=== PATIENT | male | born 1955 | race Two or more races ===

== ENCOUNTER 2017-07-20 08:57 | Outpatient (CLI) | payer MEDICARE, MEDICAID | END 2017-07-20 23:59 | LOC: WOU 08:57 | PROVIDERS: ATTEND Podiatrist Foot & Ankle Surgery | DX: T87.53 Necrosis of amputation stump, right lower extremity (principal); E11.52 Type 2 diabetes mellitus with diabetic peripheral angiopathy with gangrene; E11.621 Type 2 diabetes mellitus with foot ulcer; I96 Gangrene, not elsewhere classified; L97.413 Non-pressure chronic ulcer of right heel and midfoot with necrosis of muscle; L97.423 Non-pressure chronic ulcer of left heel and midfoot with necrosis of muscle; L97.516 Non-pressure chronic ulcer of other part of right foot with bone involvement without evidence of necrosis; L97.312 Non-pressure chronic ulcer of right ankle with fat layer exposed; E11.622 Type 2 diabetes mellitus with other skin ulcer; Z89.431 Acquired absence of right foot; E11.22 Type 2 diabetes mellitus with diabetic chronic kidney disease; I13.2 Hypertensive heart and chronic kidney disease with heart failure and with stage 5 chronic kidney disease, or end stage renal disease; I50.9 Heart failure, unspecified; N18.6 End stage renal disease; Z99.2 Dependence on renal dialysis; Z79.4 Long term (current) use of insulin; Z79.01 Long term (current) use of anticoagulants; D63.1 Anemia in chronic kidney disease; E11.42 Type 2 diabetes mellitus with diabetic polyneuropathy; Z95.2 Presence of prosthetic heart valve | CPT/HCPCS: A6253; A6402 ×2; G0463 ==

== ENCOUNTER 2017-09-21 10:00 | Outpatient (CLI) | payer MEDICARE, MEDICAID | END 2017-09-21 23:59 | disposition home or self-care (01) | LOC: WOU 10:00 | PROVIDERS: ATTEND Podiatrist Foot & Ankle Surgery | DX: E11.621 Type 2 diabetes mellitus with foot ulcer (principal); L97.425 Non-pressure chronic ulcer of left heel and midfoot with muscle involvement without evidence of necrosis; L97.316 Non-pressure chronic ulcer of right ankle with bone involvement without evidence of necrosis; L97.515 Non-pressure chronic ulcer of other part of right foot with muscle involvement without evidence of necrosis; E11.22 Type 2 diabetes mellitus with diabetic chronic kidney disease; I13.11 Hypertensive heart and chronic kidney disease without heart failure, with stage 5 chronic kidney disease, or end stage renal disease; N18.6 End stage renal disease; Z99.2 Dependence on renal dialysis; E11.69 Type 2 diabetes mellitus with other specified complication; M86.8X7 Other osteomyelitis, ankle and foot; Z79.4 Long term (current) use of insulin; E11.51 Type 2 diabetes mellitus with diabetic peripheral angiopathy without gangrene; Z83.3 Family history of diabetes mellitus | CPT/HCPCS: A6253; A6402 ×2; G0463 ==

== ENCOUNTER 2017-10-19 14:59 | Outpatient (CLI) | payer MEDICARE, MEDICAID | END 2017-10-19 23:59 | LOC: WOU 14:59 | PROVIDERS: ATTEND Podiatrist Foot & Ankle Surgery | DX: E11.52 Type 2 diabetes mellitus with diabetic peripheral angiopathy with gangrene (principal); I96 Gangrene, not elsewhere classified; E11.621 Type 2 diabetes mellitus with foot ulcer; L97.515 Non-pressure chronic ulcer of other part of right foot with muscle involvement without evidence of necrosis; L97.316 Non-pressure chronic ulcer of right ankle with bone involvement without evidence of necrosis; L97.425 Non-pressure chronic ulcer of left heel and midfoot with muscle involvement without evidence of necrosis; E11.22 Type 2 diabetes mellitus with diabetic chronic kidney disease; N18.6 End stage renal disease; Z99.2 Dependence on renal dialysis; Z99.3 Dependence on wheelchair; Z79.891 Long term (current) use of opiate analgesic | CPT/HCPCS: 11043; A6253; A6402 ==

== ENCOUNTER 2017-10-26 13:20 | Outpatient (CLI) | payer MEDICARE, MEDICAID | END 2017-10-26 23:59 | LOC: WOU 13:20 | PROVIDERS: ATTEND Podiatrist Foot & Ankle Surgery | DX: E11.52 Type 2 diabetes mellitus with diabetic peripheral angiopathy with gangrene (principal); I96 Gangrene, not elsewhere classified; L97.516 Non-pressure chronic ulcer of other part of right foot with bone involvement without evidence of necrosis; L97.316 Non-pressure chronic ulcer of right ankle with bone involvement without evidence of necrosis; L97.422 Non-pressure chronic ulcer of left heel and midfoot with fat layer exposed; E11.22 Type 2 diabetes mellitus with diabetic chronic kidney disease; E11.69 Type 2 diabetes mellitus with other specified complication; M86.8X7 Other osteomyelitis, ankle and foot; E11.42 Type 2 diabetes mellitus with diabetic polyneuropathy; N18.6 End stage renal disease; Z99.2 Dependence on renal dialysis; Z99.3 Dependence on wheelchair; B35.1 Tinea unguium | CPT/HCPCS: 11042; 11044; 11047; A6197; A6253; A6402; J3490 ==

== ENCOUNTER 2017-11-09 13:10 | Outpatient (CLI) | payer MEDICARE, MEDICAID | END 2017-11-09 23:59 | disposition home health service (06) | LOC: WOU 13:10 | PROVIDERS: ATTEND Podiatrist Foot & Ankle Surgery | DX: E11.621 Type 2 diabetes mellitus with foot ulcer (principal); L97.422 Non-pressure chronic ulcer of left heel and midfoot with fat layer exposed; L97.316 Non-pressure chronic ulcer of right ankle with bone involvement without evidence of necrosis; E11.622 Type 2 diabetes mellitus with other skin ulcer; T87.9 Unspecified complications of amputation stump; E11.52 Type 2 diabetes mellitus with diabetic peripheral angiopathy with gangrene; L03.115 Cellulitis of right lower limb; E11.22 Type 2 diabetes mellitus with diabetic chronic kidney disease; N18.6 End stage renal disease; Z99.2 Dependence on renal dialysis; Z79.82 Long term (current) use of aspirin | CPT/HCPCS: 11044; 11047; A6197 ×2; A6209; A6253; A6402 ×3; J3490 ==

== ENCOUNTER 2017-11-23 14:19 | Outpatient (CLI) | payer MEDICARE, MEDICAID | END 2017-11-23 23:59 | LOC: WOU 14:19 | PROVIDERS: ATTEND Podiatrist Foot & Ankle Surgery | DX: T87.89 Other complications of amputation stump (principal); E11.621 Type 2 diabetes mellitus with foot ulcer; L97.422 Non-pressure chronic ulcer of left heel and midfoot with fat layer exposed; L97.316 Non-pressure chronic ulcer of right ankle with bone involvement without evidence of necrosis; L97.516 Non-pressure chronic ulcer of other part of right foot with bone involvement without evidence of necrosis; E11.622 Type 2 diabetes mellitus with other skin ulcer; E11.69 Type 2 diabetes mellitus with other specified complication; M86.8X7 Other osteomyelitis, ankle and foot; Z79.82 Long term (current) use of aspirin; E11.22 Type 2 diabetes mellitus with diabetic chronic kidney disease; N18.6 End stage renal disease; Z99.2 Dependence on renal dialysis; L03.90 Cellulitis, unspecified; R60.0 Localized edema | CPT/HCPCS: 11043; 11046; 87070; 87077; 87186; A6197 ×2; A6253; A6402 ×2; A6407; J3490 ==

== ENCOUNTER 2017-11-30 12:05 | Outpatient (CLI) | payer MEDICARE, MEDICAID | END 2017-11-30 23:59 | LOC: WOU 12:05 | PROVIDERS: ATTEND Podiatrist Foot & Ankle Surgery | DX: E11.621 Type 2 diabetes mellitus with foot ulcer (principal); L97.422 Non-pressure chronic ulcer of left heel and midfoot with fat layer exposed; L97.316 Non-pressure chronic ulcer of right ankle with bone involvement without evidence of necrosis; E11.622 Type 2 diabetes mellitus with other skin ulcer; Z79.82 Long term (current) use of aspirin; E11.22 Type 2 diabetes mellitus with diabetic chronic kidney disease; N18.6 End stage renal disease; Z99.2 Dependence on renal dialysis; E11.40 Type 2 diabetes mellitus with diabetic neuropathy, unspecified; L03.115 Cellulitis of right lower limb; Z89.431 Acquired absence of right foot | CPT/HCPCS: 11043; 11046; A6197; A6209; A6253; A6402 ×2 ==

== ENCOUNTER 2018-02-11 19:46 | Inpatient (IN) | payer MEDICARE, MEDICAID ==
[~2018-02-11] VITALS: Ht 162.6 cm; Wt 77.6 kg
--- NOTE | 2018-02-11 20:00 | NUR ---
TO BED 12 [facility] C/O MISSED DIALYSIS TODAY. PT AAOX4 NO ACUTE DISTRESS NOTED, RESP EVEN AND UNLABORED. PLACE PT ON CARDIAC MONITORING, CONTINUOUS POX. ER MD AT BEDSIDE TO EVAL PT WITH ORDERS RECEIVED. WILL CARRY OUT ORDERS.
--- NOTE | 2018-02-11 20:13 | NUR ---
MELTER SUPERVISOR OPEN HEARTH FURNACE AT BEDSIDE FOR BLOOD DRAW.
[2018-02-11 20:30] LABS: BASOPHILS % (AUTO) 0.7 % (0.0-2.0); EOSINOPHILS % (AUTO) 3.4 % (0.0-6.0); HEMATOCRIT 28 % (39-51); LYMPHOCYTES # (AUTO) 0.5 /CMM (0.8-4.8); LYMPHOCYTES % (AUTO) 9.9 % (20.0-44.0); MEAN CORPUSCULAR HEMOGLOBIN 31 PG (26.0-33.0); MEAN CORPUSCULAR HGB CONC 32 g/dl (31.0-36.0); MEAN CORPUSCULAR VOLUME 95 fL (80-96); MONOCYTES # (AUTO) 0.3 /CMM (0.1-1.30); MONOCYTES % (AUTO) 6.3 % (2.0-12.0); NEUTROPHILS # (AUTO) 3.7 /CMM (1.8-8.9); NEUTROPHILS % (AUTO) 79.7 % (43.0-81.0); PLATELET COUNT (AUTO) 137 /CMM (150-450); RDW COEFFICIENT OF VARIATION 15.2 (11.5-15.0); RED BLOOD CELL COUNT(AUTO) 2.93 MIL/uL (4.5-6.0); WHITE BLOOD COUNT (AUTO) 4.7 K/uL (4.3-11.0)
[2018-02-11 20:58] LABS: CALCIUM, SERUM 9.6 mg/dL (8.5-10.1); CREATININE 6.4 mg/dL (0.6-1.3); POTASSIUM 5.1 mmol/L (3.5-5.1)
--- NOTE | 2018-02-11 21:49 | NUR ---
REPORT CALLED TO DOPERTUCKER TIDWELL. WILL TRANSPORT PT VIA ACLS PROTOCOL.
--- NOTE | 2018-02-11 22:06 | NUR ---
PAGED [facility] FOR PANEL - ON ALL DR WU
--- NOTE | 2018-02-11 22:09 | NUR ---
ER TALKING TO DR. WU REGARDING PT ADMISSION. WILL TRANSPORT PT VIA ACLS PROTOCOL.
[2018-02-11] MEDS ORDERED: MAG HYDROX/AL HYDROX/SIMETH 30 ML UDC PO PRN (22:30)
[2018-02-11] MEDS ORDERED: ACETAMINOPHEN 325 MG TABLET PO PRN (22:30)
[2018-02-11] MEDS ORDERED: Z GUARD REMEDY 2 OZ OINT TP PRN (22:30)
[2018-02-11] MEDS ORDERED: ONDANSETRON HCL/PF 4 MG/2 ML VIAL IVP PRN (22:30)
[2018-02-11] MEDS ORDERED: ZOLPIDEM TARTRATE 5 MG TABLET PO PRN (22:30)
[2018-02-11] MEDS ORDERED: MAGNESIUM HYDROXIDE 30 ML UDC PO PRN (22:30)
[2018-02-11 22:51] VITALS: BP 148/59
[2018-02-11] MEDS ORDERED: LEVO137T24 PO (23:54)
[2018-02-11] MEDS ORDERED: OMEG1CAP55 PO (23:54)
[2018-02-11] MEDS ORDERED: WARF2TAB57 PO (23:54)
[2018-02-11] MEDS ORDERED: DOCU-141 PO (23:54)
[2018-02-11] MEDS ORDERED: PANT40TA2 PO (23:54)
[2018-02-11] MEDS ORDERED: CALC-811 PO (23:54)
[2018-02-11] MEDS ORDERED: ACAR50TA3 PO (23:54)
[2018-02-11] MEDS ORDERED: ISOS20TA8 PO (23:54)
[2018-02-11] MEDS ORDERED: FOLI1TAB16 PO (23:54)
[2018-02-11] MEDS ORDERED: WARF1TAB47 PO (23:54)
[2018-02-11] MEDS ORDERED: SENN-18 PO (23:54)
[2018-02-11] MEDS ORDERED: VIT1TABL46 PO (23:54)
[2018-02-11] MEDS ORDERED: CARV12.5 PO (23:54)
[2018-02-11] MEDS ORDERED: VANC1PLA10 IV (23:54)
[2018-02-11] MEDS ORDERED: MERO500V3 IV (23:54)
[2018-02-11] MEDS ORDERED: ATOR10TA PO (23:54)
[2018-02-11] MEDS ORDERED: EPOE1VIA7 SQ (23:54)
[2018-02-11] MEDS ORDERED: LISI10TA5 PO (23:54)
[2018-02-11] MEDS ORDERED: SEVE800T8 PO (23:54)
[2018-02-11] MEDS ORDERED: CINA30TA2 PO (23:54)
[2018-02-12] VITALS (7 sets, daily range): BP systolic 111–140; BP diastolic 44–82
[2018-02-12] MEDS ORDERED: CLONIDINE HCL 0.1 MG TABLET PO PRN
--- NOTE | 2018-02-12 | NUR ---
ACETYLENE TORCH SOLDERER NOTES RECEIVE PT FROM Lilian AT 02/11/18 7175 PT ADMITTED TO TELE UNIT PT A/O X4, SMITH PICC LINE INTACT AND PATENT HEAD TO TOE ASSESSMENT IS DONE, RESPIRATIONS EVEN AND UNLABORED. STABLE, PT REFUSED REMOVED DRESSING TO HIS L FOOT LEFT UPPER LEG AND R FOOT PATIENT VERBALIZED THAT DR. SIERRA INSTRUCTED HIM THAT ONLY DOCTOR WILL CHANGE DRESSING PER PT DRESSING WAS CHANGED 2 DAYS AGO DRESSING CLEAN AND NO S/S OF BLEEDING NOT SOAKED. PT KEPT CLEAN AND DRY AND COMFORT. NEEDS ATTENDED. WILL MONITOR PT. VS STABLE
--- NOTE | 2018-02-12 03:58 | NUR ---
TYE AND SPOKE TO DR. WU REMINDED MED RECON OF THE PATIENT TO LOOK AT.
--- NOTE | 2018-02-12 06:19 | NUR ---
WASH PLANT OPERATOR CLOSING NOTES PT COMFORTABLY ASLEEP AND EASILY AWAKEN, STABLE, SR 75 TOLERATING ROOM AIR 99% NOT IN DISTRESS. RESPIRATION EVEN AND UNLABORED. KEPT CLEAN AND DRY AND COMFORTABLE, ALL NURSING CARE RENDERED. NEEDS ATTENDED AND ANTICIPATED, NO FACIAL GRIMACING NOTED. NO COMPLAIN OF PAIN. GOOD SKIN CARE PROVIDED. ON LOW BED AT ALL TIMES TO ENSURE SAFETY. SAFE HAZARD FREE ENVIRONMENT PROVIDED. CALL LIGHT WITHIN EASY TO REACH. WILL ENDORSE NEXT SHIFT CONTINUITY OF CARE.
[2018-02-12 06:41] LABS: BASOPHILS % (AUTO) 0.4 % (0.0-2.0); EOSINOPHILS % (AUTO) 3.6 % (0.0-6.0); HEMATOCRIT 29 % (39-51); HEMOGLOBIN 9.4 g/dL (13.5-17.5); LYMPHOCYTES # (AUTO) 0.6 /CMM (0.8-4.8); LYMPHOCYTES % (AUTO) 14.3 % (20.0-44.0); MEAN CORPUSCULAR HEMOGLOBIN 33 PG (26.0-33.0); MEAN CORPUSCULAR HGB CONC 33 g/dl (31.0-36.0); MEAN CORPUSCULAR VOLUME 98 fL (80-96); MONOCYTES # (AUTO) 0.3 /CMM (0.1-1.30); MONOCYTES % (AUTO) 8.1 % (2.0-12.0); NEUTROPHILS # (AUTO) 3.1 /CMM (1.8-8.9); NEUTROPHILS % (AUTO) 73.6 % (43.0-81.0); PLATELET COUNT (AUTO) 112 /CMM (150-450); RDW COEFFICIENT OF VARIATION 15.8 (11.5-15.0); WHITE BLOOD COUNT (AUTO) 4.2 K/uL (4.3-11.0)
[2018-02-12 06:50] LABS: CALCIUM, SERUM 9.5 mg/dL (8.5-10.1); CREATININE 6.7 mg/dL (0.6-1.3); MAGNESIUM 2.3 mg/dL (1.8-2.4); PHOSPHORUS 3.5 mg/dL (2.5-4.9)
--- NOTE | 2018-02-12 06:59 | NUR ---
TELE NOTES GAVE 8 OZ APPLE JUICE WITH 2 PACKS OF WHITE SUGAR ENDORSE TO NEXT SHIFT RN TO RECHECK BLOOD SUGAR IN 30 MINUTES Addendum: 02/12/18 at 0716 by YAW MART RN PT DRINK ALL 80Z
--- NOTE | 2018-02-12 07:20 | NUR ---
TELE/RN OPENING NOTE PATIENT IS RECEIVED IN BED AWAKE. ALERT AND ORIENTED X4. DENIES SOB. RESPIRATION REGULAR AND UNLABORED. DENIES PAIN. PATIENT IS ON TELE MONITOR AT SR 72 WITH BBB. PATIENT IN NO APPARENT DISTRESS. SMITH PICC LINE PATENT AND SALINE LOCKED. PATIENT IS NOTED WITH RIGHT AND LEFT FOOT WOUND DRESSING WITH NO STRIKE THRUE. BED LOW AND LOCKED. SIDE RAILS UP X3. CALL LIGHT WITHIN REACH. WILL CONTINUE TO MONITOR.
[2018-02-12] MEDS ORDERED: POLY17PO4 PO (07:52)
[2018-02-12] MEDS ORDERED: CALC-7 PO (07:52)
[2018-02-12] MEDS ORDERED: SIME80TA15 PO (07:52)
[2018-02-12] MEDS ORDERED: ACET-868 PO (07:52)
[2018-02-12] MEDS ORDERED: HYDR-552 PO (07:52)
[2018-02-12] MEDS ORDERED: CALC-494 PO (07:52)
[2018-02-12] MEDS ORDERED: BISA10SU8 RC (07:52)
--- NOTE | 2018-02-12 08:15 | NUR ---
TELE/RN NOTE AT 0759 BLOOD AXWEU=[id number].
[2018-02-12] MEDS ORDERED: SIMETHICONE 80 MG TAB.CHEW PO PRN (09:00)
[2018-02-12] MEDS: CARVEDILOL 12.5 MG TABLET PO SCH ×2 (09:00→16:11)
[2018-02-12] MEDS ORDERED: Medication Not On Formulary EA (Omega-3 Acid Ethyl Esters (Lovaza) 1 GM) PO SCH (09:00)
[2018-02-12] MEDS ORDERED: CALCIUM CARB 250MG /VITAMIN D 1 UDTAB PO PRN (09:00)
[2018-02-12] MEDS ORDERED: HYDROCODONE/APAP 5/325MG 1 EACH TABLET PO PRN (09:00)
[2018-02-12] MEDS: LISINOPRIL (10MG) 10 MG TABLET PO SCH ×2 (09:00→16:11)
[2018-02-12] MEDS: ISOSORBIDE DINITRATE (20MG) 20 MG TABLET PO SCH ×3 (09:00→16:10)
[2018-02-12] MEDS ORDERED: SENNOSIDES 8.6 MG TABLET PO PRN (09:00)
[2018-02-12] MEDS ORDERED: BISACODYL SUPP (10 MG) 10 MG/SUPP.RECT SUPP.RECT RC PRN (09:00)
[2018-02-12] MEDS ORDERED: MEROPENEM 500 MG VIAL IV SCH (09:00)
[2018-02-12 09:14] LABS: INR 1.69 (0.87-1.13)
[2018-02-12] MEDS: FOLIC ACID 1 MG TABLET PO SCH (09:23)
[2018-02-12] MEDS: CALCIUM CARB 250MG /VITAMIN D 1 UDTAB PO SCH (09:23)
[2018-02-12] MEDS: PANTOPRAZOLE 40 MG TABLET.DR PO SCH (09:25)
[2018-02-12] MEDS ORDERED: FEE PK DOSING 1 MIN EA MC ONE (09:58)
[2018-02-12] MEDS ORDERED: VANCOMYCIN 500 MG in IV D5W 100 ML IV PRN (10:00)
[2018-02-12] MEDS: HYDROCODONE/APAP 5/325MG 1 EACH TABLET PO PRN ×3 (11:03→21:52)
[2018-02-12] MEDS ORDERED: LEVOFLOXACIN 750 MG /D5W 150ML 150 ML IV ONE (11:21)
[2018-02-12] MEDS ORDERED: HEPARIN SODIUM, PORCINE 5000 UNITS/1 ML VIAL IV ONE (11:30)
[2018-02-12] MEDS: HEPARIN INFUSION/D5W 500 ML IV PRN (12:01)
[2018-02-12] MEDS: SEVELAMER CARBONATE 800 MG TABLET PO SCH ×2 (13:00→17:21)
--- NOTE | 2018-02-12 14:07 | NUR ---
MS/RN NOTE ISORDIL AND RENAGEL DUE AT 1300 NOT ADMINISTERED DUE TO PATIENT GETTING DIALYZED.
[2018-02-12] MEDS ORDERED: EPOETIN ALFA (10,000 UNIT) 10,000 UNIT/ML VIAL SQ SCH (15:00)
[2018-02-12] MEDS: MEROPENEM 500 MG in IV NS 0.9% 50 ML IV SCH (15:13)
--- NOTE | 2018-02-12 15:13 | NUR ---
MS/RN NOTE MERREM DUE AT 1200 IS ADMINISTERED LATE DUE TO PATIENT GETTING DIALYSIS.
[2018-02-12] MEDS ORDERED: EPOETIN ALFA (10,000 UNIT) 10,000 UNIT/ML VIAL SQ PRN (15:15)
--- NOTE | 2018-02-12 15:47 | NUR ---
MS/RN NOTE DR MTZ IS MADE AWARE THAT THE PATIENT HEPARIN BOLUS WAS GIVEN ORDER AND THE HEPARIN DRIP WAS STARTED ORDERED BUT THE HEPATIN DRIP WAS STOPPED AT 1230 DUE TO PATIENT STARTED TO GET DIALYSIS. THE PATIENT IS SCHEDULED FOR PTT AT 1801. PER DR MTZ OK TO POSTPONE BLOOD DRAW FOR PTT AT 2145. (PATIENT GETTING DIALYSIS FROM 12:30 TO 1510 AND IV ATB FROM 1513 TO 1615).
[2018-02-12] MEDS ORDERED: WARFARIN SODIUM 1 MG TABLET PO SCH (17:00)
--- NOTE | 2018-02-12 18:30 | NUR ---
MS/RN CLOSING NOTE PATIENT ALERT AND ORIENTED X4. DENIES SOB. DENIES PAIN. RESPIRATION REGULAR AND UNLABORED. PATIENT IN NO APPARENT DISTRESS. RIGHT UPPER ARM PICC LINE PATENT AND IV HEPARIN INFUSING WITH NO S/S INFECTION. NO S/S BLEEDING NOTED. PATIENT IN STABLE CONDITION. BED LOW AND LOCKED. SIDE RAILS UP X3. CALL LIGHT WITHIN REACH. WILL ENDORSE TO SCAFFOLD ERECTOR.
--- NOTE | 2018-02-12 20:00 | NUR ---
MS RN NOTES RECEIVED RESTING COMFORTABLY ON BED,BREATHING NORMAL,WITH RIGHT UPPER ARM PICC LINE FOR IV MEDS.HEPARIN DRIP IN PROGRESS.WITH LEFT UPPER AV SHUNT FOR HD ACCESS.RIGHT FOOT DRESSING INTACT AND DRY.LEFT FOOT DRESSING INTACT AND DRY,REFUSED TO BE ELEVATED.DENIES DISCOMFORTS AT THE MOMENT.CALL LIGHT IN REACH,NEEDS ANTICIPATED.
[2018-02-12] MEDS: DOCUSATE SODIUM 100 MG CAPSULE PO SCH (21:42)
[2018-02-12] MEDS: ATORVASTATIN 10 MG TABLET PO SCH (21:42)
[2018-02-12] MEDS: CINACALCET HCL 30 MG TABLET PO SCH (21:42)
--- NOTE | 2018-02-12 21:52 | NUR ---
MS RN NOTES PAIN MANAGEMENT C/O PAIN VIA LEFT FOOT 01/11 ON PAIN SCALE,NORCO 5/325MG,1TAB PO GIVEN ORDERED FOR MODERATE PAIN
--- NOTE | 2018-02-12 22:40 | NUR ---
MS RN NOTES REPORTED BY [employer],APTT DRAWN AT 2145 WAS 81.HEPARIN DRIP DECREASED TO 1300UNITS FORM 1450 UNITS INITIAL DOSE.CHARGE NURSE VINICIUS MADE AWARE.
--- NOTE | 2018-02-12 23:00 | NUR ---
MS RN NOTES PATIENT REQUEST BLOOD SUGAR CHECK AND IT WAS 72,APPLE JUICE GIVEN PER PATIENT REQUEST.
--- NOTE | 2018-02-12 23:15 | NUR ---
MS RN NOTES STILL COMPLAINING OF PAIN, AND ITS NOW 8-9/10 ON PAIN SCALE.WILL PAGE MD REVIT DRAFTER FOR STRONGER PAIN MANAGEMENT.
--- NOTE | 2018-02-12 23:30 | NUR ---
MS RN NOTES DR WU CAME,MADE AWARE OF PATIENT CONCERN ABOUT PAIN,WITH ORDER FOR NORCO 10/325MG,1TAB PO Q 6 HOURS FOR SEVERE NOTED AND CARRIED OUT.
[2018-02-12] MEDS: HYDROCODONE/APAP 10/325MG 1 EA TABLET PO PRN (23:46)
[2018-02-13] VITALS (7 sets, daily range): BP systolic 113–159; BP diastolic 47–65
--- NOTE | 2018-02-13 04:00 | NUR ---
MS RN NOTES FEELING WEAK,BLOOD SUGAR CHECK WAS 59,APPLE JUICE WITH SUGAR GIVEN.WILL CONTINUE TO MONITOR STATUS.
[2018-02-13 04:34] LABS: EOSINOPHILS % (AUTO) 3.2 % (0.0-6.0); HEMATOCRIT 26 % (39-51); HEMOGLOBIN 8.3 g/dL (13.5-17.5); LYMPHOCYTES # (AUTO) 0.6 /CMM (0.8-4.8); LYMPHOCYTES % (AUTO) 15.4 % (20.0-44.0); MEAN CORPUSCULAR HEMOGLOBIN 31 PG (26.0-33.0); MEAN CORPUSCULAR HGB CONC 32 g/dl (31.0-36.0); MEAN CORPUSCULAR VOLUME 98 fL (80-96); MONOCYTES # (AUTO) 0.4 /CMM (0.1-1.30); MONOCYTES % (AUTO) 10.6 % (2.0-12.0); NEUTROPHILS # (AUTO) 2.7 /CMM (1.8-8.9); NEUTROPHILS % (AUTO) 70.8 % (43.0-81.0); PLATELET COUNT (AUTO) 122 /CMM (150-450); RDW COEFFICIENT OF VARIATION 15.9 (11.5-15.0); RED BLOOD CELL COUNT(AUTO) 2.66 MIL/uL (4.5-6.0); WHITE BLOOD COUNT (AUTO) 3.8 K/uL (4.3-11.0)
[2018-02-13 04:41] LABS: CALCIUM, SERUM 8.5 mg/dL (8.5-10.1); CREATININE 5.1 mg/dL (0.6-1.3); MAGNESIUM 1.9 mg/dL (1.8-2.4); PHOSPHORUS 3.1 mg/dL (2.5-4.9); POTASSIUM 4.4 mmol/L (3.5-5.1)
[2018-02-13] MEDS: HYDROCODONE/APAP 5/325MG 1 EACH TABLET PO PRN ×3 (04:56→18:54)
--- NOTE | 2018-02-13 04:56 | NUR ---
MS RN NOTES C/P PAIN 01/02- VIA LEFT FOOT,NORCO 5/325MG,1 TAB PO GIVEN ORDERED
--- NOTE | 2018-02-13 05:00 | NUR ---
MS RN NOTES REPORTED BY [employer],PTT RESULT AT DRAWN AT 0400 WAS 77.HEPARIN DRIP DECREASED TO 1150U/H.CHARGE NURSE AWARE.
--- NOTE | 2018-02-13 05:30 | NUR ---
MS RN NOTES LATEST BLOOD SUGAR CHECK 81,PATIENT FEELS BETTER.OFFERED DIAGNOSTIC SLIDING SCALE FOR BLOOD SUGAR BUT REFUSED
--- NOTE | 2018-02-13 06:49 | NUR ---
MS RN NOTES FAIRLY RESTED AT NIGHT,NO SOB,LATEST BLOOD SUGAR 81.HEPARIN DRIP AT 1150 AT THIS TIME,LATEST PTT WAS 77.IN NO ACUTE DISTRESS.WILL ENDORSE TO DAY NURSE FOR JIA.
[2018-02-13 08:50] LABS: INR 1.41 (0.87-1.13)
[2018-02-13] MEDS: CARVEDILOL 12.5 MG TABLET PO SCH ×2 (09:00→17:01)
[2018-02-13] MEDS: ISOSORBIDE DINITRATE (20MG) 20 MG TABLET PO SCH ×3 (09:00→17:00)
[2018-02-13] MEDS: LISINOPRIL (10MG) 10 MG TABLET PO SCH ×2 (09:00→17:00)
--- NOTE | 2018-02-13 09:30 | NUR ---
RN INITIAL NOTES: RECEIVED REPORT FROM GILBERTO CEBALLOS PATIENT RESTING IN BED. NONLABORED BREATHING NOTED ON ROOM AIR. DENYING PAIN AT THE MOMENT. AV SHUNT ON LEFT ARM WITH BANDAID APPLIED. NO SIGNS OF BLEEDING NOTED. RIGHT UPPER ARM PICCLINE PATENT AND INTACT. BED IN LOWEST LOCKED POSITION CALL LIGHT WITHIN REACH
[2018-02-13] MEDS: PANTOPRAZOLE 40 MG TABLET.DR PO SCH (09:48)
[2018-02-13] MEDS: CALCIUM CARB 250MG /VITAMIN D 1 UDTAB PO SCH (09:48)
[2018-02-13] MEDS: FOLIC ACID 1 MG TABLET PO SCH (09:48)
[2018-02-13] MEDS: LEVOTHYROXINE SODIUM 100 MCG TABLET PO SCH (09:50)
--- NOTE | 2018-02-13 09:50 | NUR ---
PER DR MTZ, CONTINUE HEPARIN DRIP AND SCHEDULED COUMADIN , DR AWARE OF AM LABS ORDER DURING ROUNDS, VERBAL READBACK DONE
[2018-02-13] MEDS: SEVELAMER CARBONATE 800 MG TABLET PO SCH ×3 (09:55→18:20)
[2018-02-13 10:55] LABS: INR 1.34 (0.87-1.13)
--- NOTE | 2018-02-13 11:16 | NUR ---
APTT AT 63, SPOKE TO OTONIEL FROM PHARMACY. VERIFIED TO KEEP DOSAGE AT 1,150 UNITS/HOUR APTT TO BE REPEATED TOMORROW PER MD ORDERS AND PROTOCOL
[2018-02-13] MEDS: HEPARIN INFUSION/D5W 500 ML IV PRN (12:34)
[2018-02-13] MEDS: HYDROCODONE/APAP 10/325MG 1 EA TABLET PO PRN ×2 (14:22→22:00)
[2018-02-13] MEDS: MEROPENEM 500 MG in IV NS 0.9% 50 ML IV SCH (14:56)
--- NOTE | 2018-02-13 15:36 | NUR ---
DR BARNETT NOTIFIED OF PATIENT'S ADMISSION PER DR MTZ'S ORDERS PER DR BARNETT, PATIENT NON-WEIGHT BEARING, RP FROM PHYSICAL THERAPY NOTIFIED DRESSINGS TO BE CHANGED BY DR BARNETT PER HIS ORDERS
[2018-02-13] MEDS: POLYETHYLENE GLYCOL 3350 17 GM POWD.PACK PO PRN (15:46)
[2018-02-13] MEDS: WARFARIN SODIUM 1 MG TABLET PO SCH (18:01)
--- NOTE | 2018-02-13 18:20 | NUR ---
PATIENT BEING MONITORED FOR SIGNS OF BLEEDING THROUGHOUT SHIFT. NONE OBSERVED
--- NOTE | 2018-02-13 19:15 | NUR ---
TUCKER CLOSING NOTES: PATIENT RESTING IN BED. NONLABORED BREATHING NOTED ON ROOM AIR. AV SHUNT ON LEFT ARM WITH BANDAID APPLIED. NO SIGNS OF BLEEDING NOTED. RIGHT UPPER ARM PICCLINE PATENT AND INTACT WITH HEPARIN DRIP RUNNING AT 1150 UNITS/HOUR PER ORDERS. DRESSINGS ON RIGHT AND LEFT FEET INTACT WITH NO BLEEDING NOTED. DRESSING ON LEFT UPPER THIGH INTACT WITH NO BLEEDING. MIRALAX ADMINISTERED DURING SHIFT FOR CONSTIPATION. TUCKER LOJA NOTIFIED TO MONITOR FOR EFFECTIVENESS. BED IN LOWEST LOCKED POSITION CALL LIGHT WITHIN REACH ENDORSED TO PURVI CEBALLOS
--- NOTE | 2018-02-13 19:15 | NUR ---
MS RN OPENING NOTE Patient was seen lying in bed AAOx4, breathing on RA with no SOB, and no signs of acute distress. Heparin drip is infusing through the right upper arm PICC line at 1150 units/hr with no signs of leaking, infiltration, redness, or swelling. Patient shows no signs or sx of bleeding. Left upper arm AV shunt is noted; clean, dry, and open to air; positive bruit. Dressings on bilateral feet and left upper thigh are clean, dry, and intact and per shift report/physician notes, dressing is only to be changed by MD until further notice. Bed is in the low/locked position, two side rails up, and call williamson within reach. Patient has no immediate needs at this time. Will continue to monitor.
[2018-02-13] MEDS: CINACALCET HCL 30 MG TABLET PO SCH (21:47)
[2018-02-13] MEDS: DOCUSATE SODIUM 100 MG CAPSULE PO SCH (21:47)
[2018-02-13] MEDS: ATORVASTATIN 10 MG TABLET PO SCH (21:47)
--- NOTE | 2018-02-13 22:00 | NUR ---
MS RN NOTE - Ollie Patient reported 8/10 left foot and toe pain (s/p wound debridement approximately one week ago). PO Ollie 10/325mg was given per orders for pain relief prn. Reviewed previous administration history of both Ollie 10/325 and Ollie 5/325; patient is still below the daily limit for acetaminophen. Will continue to monitor.
--- NOTE | 2018-02-14 | NUR ---
MS RN NOTE - No pictures taken per MD instruction Per MD notes and as instructed by shift report from RN (Nayeli), the patient's wound care and dressing changes are only to be done by the physician until otherwise indicated (pending new orders for wound treatment). Approximately 10 days ago at an outside facility, the patient had a skin graft removed from left upper thigh and placed over a wound on the right foot, and the patient had a wound debridement of the third toe on the left foot. Patient is currently being followed by Dr. Villa and Dr. Westfall here at [facility]. Dressings are clean, dry, and intact.
[2018-02-14] MEDS: HYDROCODONE/APAP 5/325MG 1 EACH TABLET PO PRN (03:23)
--- NOTE | 2018-02-14 03:23 | NUR ---
MS RN NOTE - [place] Patient complained of 6/10 left foot/toe pain (s/p wound debridement approximately one week ago). PO [place] 5/325mg was given per orders for pain relief prn q4h. Will continue to monitor.
[2018-02-14] MEDS: PANTOPRAZOLE 40 MG TABLET.DR PO SCH (06:43)
[2018-02-14] MEDS: LEVOTHYROXINE SODIUM 100 MCG TABLET PO SCH (06:43)
[2018-02-14 06:56] LABS: CALCIUM, SERUM 8.9 mg/dL (8.5-10.1); CREATININE 6.3 mg/dL (0.6-1.3); INR 1.38 (0.87-1.13)
--- NOTE | 2018-02-14 07:43 | NUR ---
MS RN CLOSING NOTE Patient is AAOx4, breathing on RA with no SOB, and no signs of acute distress. Patient slept well overnight with no complications. Heparin drip is infusing through the right upper arm PICC line at 1150 units/hr. aPTT labs pending. Dressings on bilateral feet and left upper thigh are clean, dry, and intact. Bed is low/locked, two side rails up, and call williamson within reach. Patient care endorsed to day shift nurse.
[2018-02-14 08:00] VITALS: BP 155/59
[2018-02-14] MEDS: SEVELAMER CARBONATE 800 MG TABLET PO SCH ×3 (08:00→17:36)
--- NOTE | 2018-02-14 08:00 | NUR ---
MS RN OPENING NOTES: RECEIVED PT FROM NIGHTSHIFT NURSE IN STABLE CONDITION. PT IS A/O X3. NO SOB OR ACUTE SIGNS OF DISTRESS NOTED. BREATHING IS EVEN AND UNLABORED. PT DENIES ANY PAIN AT THIS TIME. AV SHUNT ON LEFT ARM NOTED. BRUIT AND THRILL PRESENT.RIGHT UPPER ARM PICC LINE NOTED TO BE PATENT AND INTACT. NO REDNESS OR SIGNS OF DISTRESS NOTED. HEPARIN DRIP RUNNING AT 1150 UNITS/HOUR PER ORDERS. NO CHANGES TO HEPARIN INFUSION ACCORDING TO CURRENT PTT LEVEL AND DOSING ORDERED. NO SIGNS OF BLEEDING NOTED AND ASSESSED. SURGICAL DRESSING NOTED TO BE CLEAN, DRY, AND INTACT. BED IN LOW LOCKED POSITION, SIDE RAILS UP X2, CALL LIGHT WITHIN REACH. WILL CONTINUE TO MONITOR .
[2018-02-14] MEDS: LISINOPRIL (10MG) 10 MG TABLET PO SCH ×2 (09:00→17:37)
[2018-02-14] MEDS: CARVEDILOL 12.5 MG TABLET PO SCH ×2 (09:00→17:38)
[2018-02-14] MEDS: ISOSORBIDE DINITRATE (20MG) 20 MG TABLET PO SCH ×3 (09:00→17:37)
[2018-02-14] MEDS: FOLIC ACID 1 MG TABLET PO SCH (09:12)
[2018-02-14] MEDS: HYDROCODONE/APAP 10/325MG 1 EA TABLET PO PRN ×3 (09:12→21:58)
[2018-02-14] MEDS: CALCIUM CARB 250MG /VITAMIN D 1 UDTAB PO SCH (09:12)
--- NOTE | 2018-02-14 09:16 | NUR ---
RN NOTES: 0900 BP MEDICATION ADMINISTRATION NO BP MEDICATIONS WERE ADMINISTERED AT 0900 PT WILL BE DIALYZED WITHIN HR
[2018-02-14] MEDS: HEPARIN INFUSION/D5W 500 ML IV PRN (09:17)
[2018-02-14] MEDS ORDERED: CALCIUM CARBONATE 500 MG TAB.CHEW PO PRN (09:30)
--- NOTE | 2018-02-14 11:42 | NUR ---
RN NOTES: S/P HD HD COMPLETED. 2L REMOVED. VITALS STABLE. PRESSURE DRESSINGS PLACED ON HD SITE. WILL MONITOR FOR SIGNS OF BLEEDING PT IS ON HEPARIN DRIP
[2018-02-14] MEDS: MEROPENEM 500 MG in IV NS 0.9% 50 ML IV SCH (12:03)
[2018-02-14 16:00] VITALS: BP 177/60
[2018-02-14] MEDS: WARFARIN SODIUM 1 MG TABLET PO SCH (17:44)
--- NOTE | 2018-02-14 18:51 | NUR ---
MS RN CLOSING NOTES PT REMAINS STABLE. ALL NEEDS MET DURING SHIFT AND ORDERS CARRIED OUT ACCORDINGLY. ALL DUE MEDS GIVEN. NO S/S OF BLEEDING NOTED THROUGHOUT SHIFT. HE DENIES ANY PAIN AT THIS TIME. VITALS REMAIN STABLE. SAFETY MEASURES REMAIN IN PLACE. WILL ENDORSE TO NIGHTSHIFT NURSE FOR JIA
--- NOTE | 2018-02-14 19:10 | NUR ---
RN OPENING NOTES PT AWAKE AND ALERT, RESTING IN BED. NO COMPLAINTS OF PAIN, SOB OR DISTRESS AT THIS TIME. PT SATING WELL ON RA. PT HAS A RIGHT UPPER ARM PICC LINE RUNNING HEPARIN @1150 UNITS/HR. NO S/S OF BLEEDING. PT ALSO HAS A BAIRON AV SHUNT, PT HAD HD TODAY WITH 2L OUT. SAFETY PRECAUTIONS IN PLACE, BED IN LOWEST LOCKED, POSITION, X2 SIDE RAILS UP, AND CALL LIGHT WITHIN REACH. WILL CONTINUE TO MONITOR.
[2018-02-14 20:00] VITALS: BP 119/54
[2018-02-14] MEDS: CINACALCET HCL 30 MG TABLET PO SCH (21:24)
[2018-02-14] MEDS: DOCUSATE SODIUM 100 MG CAPSULE PO SCH (21:24)
[2018-02-14] MEDS: ATORVASTATIN 10 MG TABLET PO SCH (21:24)
[2018-02-15] MEDS: HYDROCODONE/APAP 10/325MG 1 EA TABLET PO PRN ×2 (05:18→11:04)
[2018-02-15 07:50] LABS: CALCIUM, SERUM 9.1 mg/dL (8.5-10.1); CREATININE 5.5 mg/dL (0.6-1.3); POTASSIUM 4.8 mmol/L (3.5-5.1)
[2018-02-15 07:58] LABS: INR 1.76 (0.87-1.13)
--- NOTE | 2018-02-15 07:59 | NUR ---
RN CLOSING NOTES PT AWAKE AND ALERT, RESTING IN BED. NO SOB OR DISTRESS OVERNIGHT. PT SATING WELL ON RA. PT HAS A RIGHT UPPER ARM PICC LINE RUNNING HEPARIN @1150 UNITS/HR. NO S/S OF BLEEDING. PT ALSO HAS A BAIRON AV SHUNT. SAFETY PRECAUTIONS IN PLACE, BED IN LOWEST LOCKED, POSITION, X2 SIDE RAILS UP, AND CALL LIGHT WITHIN REACH. WILL ENDORSE TO DAY SHIFT NURSE FOR CONTINUITY OF CARE.
[2018-02-15 08:00] VITALS: BP 132/52
--- NOTE | 2018-02-15 08:00 | NUR ---
MS RN OPENING NOTES: RECEIVED PT FROM NIGHTSHIFT NURSE IN STABLE CONDITION. PT IS A/O X3. NO SOB OR ACUTE SIGNS OF DISTRESS NOTED. BREATHING IS EVEN AND UNLABORED. PT DENIES ANY PAIN AT THIS TIME. AV SHUNT ON LEFT ARM NOTED. BRUIT AND THRILL PRESENT.RIGHT UPPER ARM PICC LINE NOTED TO BE PATENT AND INTACT. NO REDNESS OR SIGNS OF DISTRESS NOTED. HEPARIN DRIP RUNNING AT 1150 UNITS/HOUR PER ORDER. AWAITING COAGULATION RESULTS TO MAKE ADJUSTMENTS IF NEED BE PER PROTOCOL. NO SIGNS OF BLEEDING NOTED AND ASSESSED AT THIS TIME. BED IN LOW LOCKED POSITION, SIDE RAILS UP X3, CALL LIGHT WITHIN REACH. WILL CONTINUE TO MONITOR
[2018-02-15] MEDS: SEVELAMER CARBONATE 800 MG TABLET PO SCH ×2 (08:47→12:28)
[2018-02-15] MEDS: CALCIUM CARB 250MG /VITAMIN D 1 UDTAB PO SCH (08:49)
[2018-02-15] MEDS: FOLIC ACID 1 MG TABLET PO SCH (08:49)
[2018-02-15] MEDS: LEVOTHYROXINE SODIUM 100 MCG TABLET PO SCH (08:49)
[2018-02-15] MEDS: PANTOPRAZOLE 40 MG TABLET.DR PO SCH (08:49)
[2018-02-15] MEDS: ISOSORBIDE DINITRATE (20MG) 20 MG TABLET PO SCH ×2 (08:50→12:27)
[2018-02-15] MEDS: LISINOPRIL (10MG) 10 MG TABLET PO SCH (08:50)
[2018-02-15] MEDS: CARVEDILOL 12.5 MG TABLET PO SCH (09:00)
[2018-02-15] MEDS: HEPARIN INFUSION/D5W 500 ML IV PRN (10:16)
[2018-02-15] MEDS ORDERED: HEPARIN SODIUM, PORCINE 5000 UNITS/1 ML VIAL IV ONE (10:30)
[2018-02-15] MEDS: POLYETHYLENE GLYCOL 3350 17 GM POWD.PACK PO PRN (10:55)
--- NOTE | 2018-02-15 11:19 | NUR ---
MS RN NOTES: HEPARIN ADJUSTMENTS PT'S CURRENT aPTT IS 41. PER PROTOCOL, PT WAS GIVEN A BOLUS OF 3200 UNITS AND THE DRIP WAS INCREASED BY 150U/H. CURRENT RATE IS SET TO 1300. RATE CALCULATIONS AND ADJUSTMENTS VERIFIED WITH PHARMACIST ALONG WITH ANOTHER RN.
--- NOTE | 2018-02-15 11:28 | NUR ---
WOUND CARE CONSULT WOUND CARE RECEIVED CONSULT FOR WOUND L AND R FOOT, PATIENT OF DR WATSON. WOUND CARE WILL DEFER ALL TREATMENT PLANS TO PODIATRY TEAM AT THIS TIME. ORDERS FOR TREATMENT CLARIFIED WITH DPMarcelino WATSON. Addendum: 02/15/18 at 1131 by JAIME HILLIARD WNDNU ALL DISCUSSED WITH NURSING STAFF. PATIENT WITH MARIO AT 16, WILL SEE PRN.
[2018-02-15] MEDS ORDERED: MUPIROCIN OINT 2% 22 GM TUBE TP SCH (11:30)
[2018-02-15] MEDS: MEROPENEM 500 MG in IV NS 0.9% 50 ML IV SCH (12:25)
[2018-02-15] MEDS ORDERED: ONCOUMADIN PO (12:47)
[2018-02-15 15:28] VITALS: BP 131/49
--- NOTE | 2018-02-15 15:40 | NUR ---
MS MATHEMATICS TECHNICIAN NOTES PT WAS DISCHARGED FROM FACILITY IN STABLE CONDITION. ALL NEEDS WERE MET DURING SHIFT AND ORDERS CARRIED OUT ACCORDINGLY. ALL DUE MEDS GIVEN. WOUND AND SKIN CARE RENDERED ORDERED. REPORT CALLED AND GIVEN TO ASHLEY CALLOWAY RECEIVING RN AT [facility]. RN MADE AWARE OF DISCHARGE INSTRUCTIONS AND THAT THE PT IS NWB ON HIS RIGHT LOWER EXTREMITY DUE TO RECENT SKIN GRAFT PROCEDURE. RN ALSO MADE AWARE THAT THE PT WILL BE GOING BACK WITH HIS RIGHT UPPER ARM PICC LINE INDICATED BY THE MD THE PT RECEIVES IV VANCOMYCIN POST HD. PICC LINE CARE RENDERED PRIOR TO D/C CENTRAL LINE DRESSING CLEAN, DRY, AND INTACT. PROTECTIVE SUPERVISOR ALTERATION WORKROOM PLACED TO MINIMIZE INFECTION RISK. D/C PHOTOS TAKEN AND PLACED IN PT'S CHART. BELONGINGS VERIFIED PRIOR TO D/C. D/C INSTRUCTIONS AND EDUCATION REVIEWED WITH PT PRIOR TO HIM SIGNING ALL D/C PAPERWORK. COPIES MADE AND PLACED IN PT'S CHART. PT WAS SAFELY TRANSFERRED FROM BED TO AMBULANCE [facility] AND LEFT IN STABLE CONDITION. VITALS STABLE PRIOR TO D/C
== END 2018-02-15 16:00 | DRG 291 ==
LOC: ER 19:48 → TELE 22:15 → MED 02-12 14:12
PROVIDERS: ADMIT Internal Medicine; ATTEND Internal Medicine
PROC: 02HV33Z Insertion of Infusion Device into Superior Vena Cava, Percutaneous Approach (ICD-10-PCS; 2018-02-11)
PROC: B548ZZA Ultrasonography of Superior Vena Cava, Guidance (ICD-10-PCS; 2018-02-11)
PROC: 5A1D70Z Performance of Urinary Filtration, Intermittent, Less than 6 Hours Per Day (ICD-10-PCS; principal; 2018-02-12)
PROC: 5A1D70Z Performance of Urinary Filtration, Intermittent, Less than 6 Hours Per Day (ICD-10-PCS; 2018-02-14)
DX: I13.2 Hypertensive heart and chronic kidney disease with heart failure and with stage 5 chronic kidney disease, or end stage renal disease (principal); N18.6 End stage renal disease; J96.01 Acute respiratory failure with hypoxia; I50.33 Acute on chronic diastolic (congestive) heart failure; N25.81 Secondary hyperparathyroidism of renal origin; E11.22 Type 2 diabetes mellitus with diabetic chronic kidney disease; Z99.2 Dependence on renal dialysis; Z91.15 Patient's noncompliance with renal dialysis; E11.621 Type 2 diabetes mellitus with foot ulcer; E11.42 Type 2 diabetes mellitus with diabetic polyneuropathy; E11.51 Type 2 diabetes mellitus with diabetic peripheral angiopathy without gangrene; D63.8 Anemia in other chronic diseases classified elsewhere; K21.9 Gastro-esophageal reflux disease without esophagitis; Z95.2 Presence of prosthetic heart valve; Z95.1 Presence of aortocoronary bypass graft; Z89.431 Acquired absence of right foot; Z85.71 Personal history of Hodgkin lymphoma; Z79.01 Long term (current) use of anticoagulants; E03.9 Hypothyroidism, unspecified; M85.9 Disorder of bone density and structure, unspecified; I25.10 Atherosclerotic heart disease of native coronary artery without angina pectoris; L97.519 Non-pressure chronic ulcer of other part of right foot with unspecified severity; L97.529 Non-pressure chronic ulcer of other part of left foot with unspecified severity; I50.9 Heart failure, unspecified; I11.0 Hypertensive heart disease with heart failure
CPT/HCPCS: 36415; 71045-TC; 80048-TC; 80202-TC; 82962-TC; 83735-TC; 84100-TC; 85025-TC; 85610-TC; 85730-TC; 87081-TC; 90935-TC; A4216; A4606; A6253; A6402; A6403; J0885; J1644; J1956; J2185; J3370; J7050; J7060; Z7610

== ENCOUNTER 2018-03-08 09:45 | Outpatient (CLI) | payer MEDICARE, MEDICAID ==
[~2018-03-08 09:45] MED LIST: ACAR50TA3 PO; ACET-868 PO; ATOR10TA PO; BISA10SU8 RC; CALC-494 PO; CALC-7 PO; CARV12.5 PO; CINA30TA2 PO; DOCU-141 PO; EPOE1VIA7 SQ; FOLI1TAB16 PO; HYDR-552 PO; ISOS20TA8 PO; LEVO137T24 PO; LISI10TA5 PO; MERO500V3 IV; OMEG1CAP55 PO; ONCOUMADIN PO; PANT40TA2 PO; POLY17PO4 PO; SENN-18 PO; SEVE800T8 PO; SIME80TA15 PO; VANC1PLA10 IV; VIT1TABL46 PO
== END 2018-03-08 23:59 | disposition home or self-care (01) ==
LOC: WOU 09:45
PROVIDERS: ATTEND Podiatrist Foot & Ankle Surgery
DX: E11.621 Type 2 diabetes mellitus with foot ulcer (principal); L97.412 Non-pressure chronic ulcer of right heel and midfoot with fat layer exposed; L97.512 Non-pressure chronic ulcer of other part of right foot with fat layer exposed; E11.52 Type 2 diabetes mellitus with diabetic peripheral angiopathy with gangrene; E11.40 Type 2 diabetes mellitus with diabetic neuropathy, unspecified; E11.22 Type 2 diabetes mellitus with diabetic chronic kidney disease; I96 Gangrene, not elsewhere classified; I13.2 Hypertensive heart and chronic kidney disease with heart failure and with stage 5 chronic kidney disease, or end stage renal disease; I50.9 Heart failure, unspecified; N18.6 End stage renal disease; L03.115 Cellulitis of right lower limb; I73.9 Peripheral vascular disease, unspecified; I48.91 Unspecified atrial fibrillation; I25.10 Atherosclerotic heart disease of native coronary artery without angina pectoris; Z99.2 Dependence on renal dialysis; Z79.4 Long term (current) use of insulin; Z95.2 Presence of prosthetic heart valve
CPT/HCPCS: 11042; A6402; Z7610

== ENCOUNTER 2018-03-22 08:45 | Outpatient (CLI) | payer MEDICARE, MEDICAID | END 2018-03-22 23:59 | LOC: WOU 08:45 | PROVIDERS: ATTEND Podiatrist Foot & Ankle Surgery | DX: Z47.81 Encounter for orthopedic aftercare following surgical amputation (principal); Z89.431 Acquired absence of right foot; E11.42 Type 2 diabetes mellitus with diabetic polyneuropathy; E11.621 Type 2 diabetes mellitus with foot ulcer; L97.529 Non-pressure chronic ulcer of other part of left foot with unspecified severity; E11.22 Type 2 diabetes mellitus with diabetic chronic kidney disease; N18.6 End stage renal disease; Z99.2 Dependence on renal dialysis | CPT/HCPCS: A6402; G0463; Z7610 ==

== ENCOUNTER 2018-04-19 08:40 | Outpatient (CLI) | payer MEDICARE, MEDICAID ==
[~2018-04-19 08:40] MED LIST changes: -ACAR50TA3 PO; -CALC-7 PO; -EPOE1VIA7 SQ; +HYDR-4384 PO; -HYDR-552 PO; +MELA3TAB PO; -MERO500V3 IV; -ONCOUMADIN PO; +ONDA4TAB5 PO; -VANC1PLA10 IV; +WARF3TAB59 PO
== END 2018-04-19 23:59 | disposition home health service (06) ==
LOC: WOU 08:40
PROVIDERS: ATTEND Podiatrist Foot & Ankle Surgery
DX: E11.621 Type 2 diabetes mellitus with foot ulcer (principal); L97.412 Non-pressure chronic ulcer of right heel and midfoot with fat layer exposed; E11.622 Type 2 diabetes mellitus with other skin ulcer; L97.312 Non-pressure chronic ulcer of right ankle with fat layer exposed; E11.42 Type 2 diabetes mellitus with diabetic polyneuropathy; E11.22 Type 2 diabetes mellitus with diabetic chronic kidney disease; N18.6 End stage renal disease; Z99.2 Dependence on renal dialysis; Z89.431 Acquired absence of right foot
CPT/HCPCS: 11042; A6402; Z7610

== ENCOUNTER 2018-07-15 11:21 | Outpatient (CLI) | payer MEDICARE, MEDICAID | END 2018-07-15 23:59 | LOC: WOU 11:21 | PROVIDERS: ATTEND Podiatrist Foot & Ankle Surgery | DX: E11.621 Type 2 diabetes mellitus with foot ulcer (principal); L97.522 Non-pressure chronic ulcer of other part of left foot with fat layer exposed; E11.22 Type 2 diabetes mellitus with diabetic chronic kidney disease; N18.6 End stage renal disease; Z99.2 Dependence on renal dialysis; I13.2 Hypertensive heart and chronic kidney disease with heart failure and with stage 5 chronic kidney disease, or end stage renal disease; I50.9 Heart failure, unspecified; Z79.4 Long term (current) use of insulin; Z87.891 Personal history of nicotine dependence; Z98.62 Peripheral vascular angioplasty status; Z79.82 Long term (current) use of aspirin; E11.52 Type 2 diabetes mellitus with diabetic peripheral angiopathy with gangrene | CPT/HCPCS: 11042; A6402 ×2; Z7610 ==

== ENCOUNTER 2018-07-19 10:45 | Outpatient (CLI) | payer MEDICARE, MEDICAID | END 2018-07-19 23:59 | LOC: WOU 10:45 | PROVIDERS: ATTEND Podiatrist Foot & Ankle Surgery | DX: E11.52 Type 2 diabetes mellitus with diabetic peripheral angiopathy with gangrene (principal); I96 Gangrene, not elsewhere classified; E11.621 Type 2 diabetes mellitus with foot ulcer; L97.522 Non-pressure chronic ulcer of other part of left foot with fat layer exposed; E11.22 Type 2 diabetes mellitus with diabetic chronic kidney disease; E11.42 Type 2 diabetes mellitus with diabetic polyneuropathy; N18.6 End stage renal disease; Z99.2 Dependence on renal dialysis; M20.40 Other hammer toe(s) (acquired), unspecified foot; Z89.431 Acquired absence of right foot; Z79.82 Long term (current) use of aspirin; Z79.899 Other long term (current) drug therapy | CPT/HCPCS: 11042; A6402; J3490 ==

== ENCOUNTER 2018-07-26 10:40 | Outpatient (CLI) | payer MEDICARE, MEDICAID | END 2018-07-26 23:59 | disposition home health service (06) | LOC: WOU 10:40 | PROVIDERS: ATTEND Podiatrist Foot & Ankle Surgery | DX: E11.52 Type 2 diabetes mellitus with diabetic peripheral angiopathy with gangrene (principal); E11.621 Type 2 diabetes mellitus with foot ulcer; L97.522 Non-pressure chronic ulcer of other part of left foot with fat layer exposed; E11.22 Type 2 diabetes mellitus with diabetic chronic kidney disease; E11.42 Type 2 diabetes mellitus with diabetic polyneuropathy; I96 Gangrene, not elsewhere classified; N18.6 End stage renal disease; Z99.2 Dependence on renal dialysis | CPT/HCPCS: 11042; A6402; J3490 ==

== ENCOUNTER 2018-08-02 10:12 | Outpatient (CLI) | payer MEDICARE, MEDICAID | END 2018-08-02 23:59 | disposition home health service (06) | LOC: WOU 10:12 | PROVIDERS: ATTEND Podiatrist Foot & Ankle Surgery | DX: E11.52 Type 2 diabetes mellitus with diabetic peripheral angiopathy with gangrene (principal); E11.22 Type 2 diabetes mellitus with diabetic chronic kidney disease; E11.42 Type 2 diabetes mellitus with diabetic polyneuropathy; E11.621 Type 2 diabetes mellitus with foot ulcer; I96 Gangrene, not elsewhere classified; L97.522 Non-pressure chronic ulcer of other part of left foot with fat layer exposed; R60.9 Edema, unspecified; R52 Pain, unspecified; N18.6 End stage renal disease; Z99.2 Dependence on renal dialysis; Z79.891 Long term (current) use of opiate analgesic; Z79.82 Long term (current) use of aspirin; Z89.431 Acquired absence of right foot | CPT/HCPCS: 11042; A6402; J3490 ==

== ENCOUNTER 2018-08-23 10:05 | Outpatient (CLI) | payer MEDICARE, MEDICAID | END 2018-08-23 23:59 | disposition home health service (06) | LOC: WOU 10:05 | PROVIDERS: ATTEND Podiatrist Foot & Ankle Surgery | DX: E11.52 Type 2 diabetes mellitus with diabetic peripheral angiopathy with gangrene (principal); E11.42 Type 2 diabetes mellitus with diabetic polyneuropathy; I96 Gangrene, not elsewhere classified; E11.621 Type 2 diabetes mellitus with foot ulcer; L97.522 Non-pressure chronic ulcer of other part of left foot with fat layer exposed; E11.22 Type 2 diabetes mellitus with diabetic chronic kidney disease; I12.0 Hypertensive chronic kidney disease with stage 5 chronic kidney disease or end stage renal disease; N18.6 End stage renal disease; Z99.2 Dependence on renal dialysis; Z79.4 Long term (current) use of insulin; R60.0 Localized edema; R52 Pain, unspecified; Z89.431 Acquired absence of right foot | CPT/HCPCS: 11042; 11043; A6402; J3490 ==

== ENCOUNTER 2018-09-06 12:00 | Outpatient (CLI) | payer MEDICARE, MEDICAID | END 2018-09-06 23:59 | disposition home health service (06) | LOC: WOU 12:00 | PROVIDERS: ATTEND Podiatrist Foot & Ankle Surgery | DX: E11.621 Type 2 diabetes mellitus with foot ulcer (principal); L97.522 Non-pressure chronic ulcer of other part of left foot with fat layer exposed; E11.22 Type 2 diabetes mellitus with diabetic chronic kidney disease; N18.6 End stage renal disease; Z99.2 Dependence on renal dialysis; Z79.82 Long term (current) use of aspirin; Z79.891 Long term (current) use of opiate analgesic; Z89.431 Acquired absence of right foot | CPT/HCPCS: 11042; A6402 ==

== ENCOUNTER 2018-09-21 11:08 | Outpatient (CLI) | payer MEDICARE, MEDICAID | END 2018-09-21 23:59 | LOC: WOU 11:08 | PROVIDERS: ATTEND Specialist | DX: S61.411A Laceration without foreign body of right hand, initial encounter (principal); X58.XXXA Exposure to other specified factors, initial encounter; Y92.129 Unspecified place in nursing home as the place of occurrence of the external cause; E11.22 Type 2 diabetes mellitus with diabetic chronic kidney disease; I13.2 Hypertensive heart and chronic kidney disease with heart failure and with stage 5 chronic kidney disease, or end stage renal disease; I50.9 Heart failure, unspecified; N18.6 End stage renal disease; Z99.2 Dependence on renal dialysis; Z98.62 Peripheral vascular angioplasty status; I48.2 Chronic atrial fibrillation; Z83.3 Family history of diabetes mellitus; Z79.82 Long term (current) use of aspirin; Z79.899 Other long term (current) drug therapy; Z86.718 Personal history of other venous thrombosis and embolism; E11.51 Type 2 diabetes mellitus with diabetic peripheral angiopathy without gangrene; Z79.4 Long term (current) use of insulin | CPT/HCPCS: A6209; A6402; G0463 ==

== ENCOUNTER 2018-09-27 08:30 | Outpatient (CLI) | payer MEDICARE, MEDICAID | END 2018-09-27 23:59 | LOC: WOU 08:30 | PROVIDERS: ATTEND Podiatrist Foot & Ankle Surgery | DX: E11.52 Type 2 diabetes mellitus with diabetic peripheral angiopathy with gangrene (principal); E11.621 Type 2 diabetes mellitus with foot ulcer; E11.42 Type 2 diabetes mellitus with diabetic polyneuropathy; E11.22 Type 2 diabetes mellitus with diabetic chronic kidney disease; I96 Gangrene, not elsewhere classified; L97.522 Non-pressure chronic ulcer of other part of left foot with fat layer exposed; N18.6 End stage renal disease; Z99.2 Dependence on renal dialysis; Z89.431 Acquired absence of right foot; Z79.82 Long term (current) use of aspirin; Z79.899 Other long term (current) drug therapy | CPT/HCPCS: 11042; A6402 ==

== ENCOUNTER 2018-09-28 10:30 | Outpatient (CLI) | payer MEDICARE, MEDICAID | END 2018-09-28 23:59 | disposition home health service (06) | LOC: WOU 10:30 | PROVIDERS: ATTEND Specialist | DX: S61.411A Laceration without foreign body of right hand, initial encounter (principal); X58.XXXA Exposure to other specified factors, initial encounter; Y92.238 Other place in hospital as the place of occurrence of the external cause; E11.22 Type 2 diabetes mellitus with diabetic chronic kidney disease; I13.2 Hypertensive heart and chronic kidney disease with heart failure and with stage 5 chronic kidney disease, or end stage renal disease; I50.9 Heart failure, unspecified; N18.6 End stage renal disease; Z99.2 Dependence on renal dialysis; I48.2 Chronic atrial fibrillation; E11.51 Type 2 diabetes mellitus with diabetic peripheral angiopathy without gangrene; E66.9 Obesity, unspecified; Z68.31 Body mass index [BMI] 31.0-31.9, adult; Z99.3 Dependence on wheelchair; Z95.2 Presence of prosthetic heart valve; Z86.718 Personal history of other venous thrombosis and embolism; Z98.62 Peripheral vascular angioplasty status; Z79.82 Long term (current) use of aspirin; Z79.899 Other long term (current) drug therapy | CPT/HCPCS: 11043; 11046; 87070; 87075; 87077; 87186 ×2; A6209; A6402 ==

== ENCOUNTER 2018-10-04 09:00 | Outpatient (CLI) | payer MEDICARE, MEDICAID | END 2018-10-04 23:59 | LOC: WOU 09:00 | PROVIDERS: ATTEND Podiatrist Foot & Ankle Surgery | DX: E11.52 Type 2 diabetes mellitus with diabetic peripheral angiopathy with gangrene (principal); E11.621 Type 2 diabetes mellitus with foot ulcer; E11.22 Type 2 diabetes mellitus with diabetic chronic kidney disease; I96 Gangrene, not elsewhere classified; L97.522 Non-pressure chronic ulcer of other part of left foot with fat layer exposed; N18.6 End stage renal disease; Z99.2 Dependence on renal dialysis; Z79.82 Long term (current) use of aspirin; Z79.891 Long term (current) use of opiate analgesic; M79.672 Pain in left foot | CPT/HCPCS: 11043; 82962; A6402 ==

== ENCOUNTER 2018-10-05 10:00 | Outpatient (CLI) | payer MEDICARE, MEDICAID | END 2018-10-05 23:59 | disposition home health service (06) | LOC: WOU 10:00 | PROVIDERS: ATTEND Specialist | DX: S61.411A Laceration without foreign body of right hand, initial encounter (principal); X58.XXXA Exposure to other specified factors, initial encounter; Y92.89 Other specified places as the place of occurrence of the external cause; I13.2 Hypertensive heart and chronic kidney disease with heart failure and with stage 5 chronic kidney disease, or end stage renal disease; E11.22 Type 2 diabetes mellitus with diabetic chronic kidney disease; N18.6 End stage renal disease; I50.9 Heart failure, unspecified; Z99.2 Dependence on renal dialysis; Z98.62 Peripheral vascular angioplasty status; I48.2 Chronic atrial fibrillation; Z86.718 Personal history of other venous thrombosis and embolism; E11.51 Type 2 diabetes mellitus with diabetic peripheral angiopathy without gangrene; Z79.82 Long term (current) use of aspirin; Z79.899 Other long term (current) drug therapy | CPT/HCPCS: 11042; A6209; A6402 ==

== ENCOUNTER 2018-10-12 10:40 | Outpatient (CLI) | payer MEDICARE, MEDICAID | END 2018-10-12 23:59 | disposition home health service (06) | LOC: WOU 10:40 | PROVIDERS: ATTEND Specialist | DX: S61.411A Laceration without foreign body of right hand, initial encounter (principal); X58.XXXA Exposure to other specified factors, initial encounter; Y92.89 Other specified places as the place of occurrence of the external cause; E11.22 Type 2 diabetes mellitus with diabetic chronic kidney disease; I13.2 Hypertensive heart and chronic kidney disease with heart failure and with stage 5 chronic kidney disease, or end stage renal disease; I50.9 Heart failure, unspecified; N18.6 End stage renal disease; Z99.2 Dependence on renal dialysis; Z79.899 Other long term (current) drug therapy; Z98.62 Peripheral vascular angioplasty status; E11.51 Type 2 diabetes mellitus with diabetic peripheral angiopathy without gangrene; I48.2 Chronic atrial fibrillation | CPT/HCPCS: 11042; A6402 ==

== ENCOUNTER 2018-10-14 10:30 | Outpatient (CLI) | payer MEDICARE, MEDICAID | END 2018-10-14 23:59 | disposition home health service (06) | LOC: WOU 10:30 | PROVIDERS: ATTEND Podiatrist Foot & Ankle Surgery | DX: E11.621 Type 2 diabetes mellitus with foot ulcer (principal); L97.528 Non-pressure chronic ulcer of other part of left foot with other specified severity; E11.52 Type 2 diabetes mellitus with diabetic peripheral angiopathy with gangrene; E11.22 Type 2 diabetes mellitus with diabetic chronic kidney disease; N18.6 End stage renal disease; Z99.2 Dependence on renal dialysis; Z89.431 Acquired absence of right foot; Z79.82 Long term (current) use of aspirin | CPT/HCPCS: 11043; A6402 ==

== ENCOUNTER 2018-10-19 09:50 | Outpatient (CLI) | payer MEDICARE, MEDICAID | END 2018-10-19 23:59 | disposition home health service (06) | LOC: WOU 09:50 | PROVIDERS: ATTEND Specialist | DX: S61.411D Laceration without foreign body of right hand, subsequent encounter (principal); X58.XXXD Exposure to other specified factors, subsequent encounter; E11.22 Type 2 diabetes mellitus with diabetic chronic kidney disease; I13.2 Hypertensive heart and chronic kidney disease with heart failure and with stage 5 chronic kidney disease, or end stage renal disease; I50.9 Heart failure, unspecified; N18.6 End stage renal disease; Z99.2 Dependence on renal dialysis; Z89.412 Acquired absence of left great toe; Z86.718 Personal history of other venous thrombosis and embolism; Z79.82 Long term (current) use of aspirin; Z79.899 Other long term (current) drug therapy; Z98.62 Peripheral vascular angioplasty status; E78.5 Hyperlipidemia, unspecified; Z79.4 Long term (current) use of insulin; E11.69 Type 2 diabetes mellitus with other specified complication; M86.34 Chronic multifocal osteomyelitis, hand; I48.2 Chronic atrial fibrillation | CPT/HCPCS: A6402; G0463 ==

== ENCOUNTER 2018-10-21 08:30 | Outpatient (CLI) | payer MEDICARE, MEDICAID | END 2018-10-21 23:59 | disposition home health service (06) | LOC: WOU 08:30 | PROVIDERS: ATTEND Podiatrist Foot & Ankle Surgery | DX: E11.621 Type 2 diabetes mellitus with foot ulcer (principal); L97.525 Non-pressure chronic ulcer of other part of left foot with muscle involvement without evidence of necrosis; E11.22 Type 2 diabetes mellitus with diabetic chronic kidney disease; I13.2 Hypertensive heart and chronic kidney disease with heart failure and with stage 5 chronic kidney disease, or end stage renal disease; I50.9 Heart failure, unspecified; N18.6 End stage renal disease; Z99.2 Dependence on renal dialysis; I48.2 Chronic atrial fibrillation; E03.9 Hypothyroidism, unspecified; D63.1 Anemia in chronic kidney disease; E11.52 Type 2 diabetes mellitus with diabetic peripheral angiopathy with gangrene | CPT/HCPCS: 11042; A6402 ==

== ENCOUNTER 2018-10-26 09:45 | Outpatient (CLI) | payer MEDICARE, MEDICAID | END 2018-10-26 23:59 | disposition home or self-care (01) | LOC: WOU 09:45 | PROVIDERS: ATTEND Registered Nurse | DX: M86.8X4 Other osteomyelitis, hand (principal); B95.2 Enterococcus as the cause of diseases classified elsewhere; B95.7 Other staphylococcus as the cause of diseases classified elsewhere; S61.401D Unspecified open wound of right hand, subsequent encounter; X58.XXXD Exposure to other specified factors, subsequent encounter; I12.0 Hypertensive chronic kidney disease with stage 5 chronic kidney disease or end stage renal disease; E11.22 Type 2 diabetes mellitus with diabetic chronic kidney disease; N18.6 End stage renal disease; Z99.2 Dependence on renal dialysis; E11.51 Type 2 diabetes mellitus with diabetic peripheral angiopathy without gangrene; Z85.72 Personal history of non-Hodgkin lymphomas; Z95.1 Presence of aortocoronary bypass graft; E03.9 Hypothyroidism, unspecified; I25.10 Atherosclerotic heart disease of native coronary artery without angina pectoris; Z89.431 Acquired absence of right foot | CPT/HCPCS: A6402; G0463 ==

== ENCOUNTER 2018-11-02 09:37 | Outpatient (CLI) | payer MEDICARE, MEDICAID | END 2018-11-02 23:59 | LOC: WOU 09:37 | PROVIDERS: ATTEND Specialist | DX: S61.411D Laceration without foreign body of right hand, subsequent encounter (principal); X58.XXXD Exposure to other specified factors, subsequent encounter; E11.22 Type 2 diabetes mellitus with diabetic chronic kidney disease; N18.6 End stage renal disease; Z99.2 Dependence on renal dialysis; E11.69 Type 2 diabetes mellitus with other specified complication; M86.241 Subacute osteomyelitis, right hand; I13.2 Hypertensive heart and chronic kidney disease with heart failure and with stage 5 chronic kidney disease, or end stage renal disease; I50.9 Heart failure, unspecified; E11.51 Type 2 diabetes mellitus with diabetic peripheral angiopathy without gangrene; Z86.718 Personal history of other venous thrombosis and embolism; Z79.82 Long term (current) use of aspirin; Z79.899 Other long term (current) drug therapy | CPT/HCPCS: A6402; G0463 ==

== ENCOUNTER 2018-11-04 09:40 | Outpatient (CLI) | payer MEDICARE, MEDICAID | END 2018-11-04 23:59 | LOC: WOU 09:40 | PROVIDERS: ATTEND Podiatrist Foot & Ankle Surgery | DX: E11.621 Type 2 diabetes mellitus with foot ulcer (principal); L97.525 Non-pressure chronic ulcer of other part of left foot with muscle involvement without evidence of necrosis; E11.52 Type 2 diabetes mellitus with diabetic peripheral angiopathy with gangrene; E11.22 Type 2 diabetes mellitus with diabetic chronic kidney disease; N18.6 End stage renal disease; Z99.2 Dependence on renal dialysis; Z79.82 Long term (current) use of aspirin; Z79.899 Other long term (current) drug therapy; Z89.431 Acquired absence of right foot | CPT/HCPCS: 11042; A6402 ==

== ENCOUNTER 2018-11-30 09:25 | Outpatient (CLI) | payer MEDICARE, MEDICAID | END 2018-11-30 23:59 | disposition home health service (06) | LOC: WOU 09:25 | PROVIDERS: ATTEND Specialist | DX: S61.411A Laceration without foreign body of right hand, initial encounter (principal); X58.XXXA Exposure to other specified factors, initial encounter; Y92.89 Other specified places as the place of occurrence of the external cause; I48.2 Chronic atrial fibrillation; E11.69 Type 2 diabetes mellitus with other specified complication; M86.241 Subacute osteomyelitis, right hand; E11.22 Type 2 diabetes mellitus with diabetic chronic kidney disease; N18.6 End stage renal disease; Z99.2 Dependence on renal dialysis; E11.42 Type 2 diabetes mellitus with diabetic polyneuropathy; Z89.421 Acquired absence of other right toe(s); Z79.82 Long term (current) use of aspirin; Z79.899 Other long term (current) drug therapy; E11.51 Type 2 diabetes mellitus with diabetic peripheral angiopathy without gangrene; Z86.718 Personal history of other venous thrombosis and embolism; Z98.62 Peripheral vascular angioplasty status; E66.9 Obesity, unspecified; Z68.31 Body mass index [BMI] 31.0-31.9, adult; E03.9 Hypothyroidism, unspecified; Z79.4 Long term (current) use of insulin | CPT/HCPCS: 11042; A6402 ==

== ENCOUNTER 2018-12-02 08:55 | Outpatient (CLI) | payer MEDICARE, MEDICAID | END 2018-12-02 23:59 | disposition home health service (06) | LOC: WOU 08:55 | PROVIDERS: ATTEND Podiatrist Foot & Ankle Surgery | DX: E11.621 Type 2 diabetes mellitus with foot ulcer (principal); L97.522 Non-pressure chronic ulcer of other part of left foot with fat layer exposed; E11.52 Type 2 diabetes mellitus with diabetic peripheral angiopathy with gangrene; I96 Gangrene, not elsewhere classified; E11.22 Type 2 diabetes mellitus with diabetic chronic kidney disease; N18.6 End stage renal disease; Z99.2 Dependence on renal dialysis; Z79.82 Long term (current) use of aspirin | CPT/HCPCS: 11042; A6402 ×2; J3490 ==

== ENCOUNTER 2018-12-05 15:42 | Inpatient (IN) | payer MEDICARE, MEDICAID ==
[~2018-12-05] VITALS: Ht 154.9 cm; Wt 70.3 kg
[2018-12-05] MEDS ORDERED: HYDR4TAB4 PO (16:20)
[2018-12-05] MEDS ORDERED: SUCR1ORA4 PO (16:20)
[2018-12-05] MEDS ORDERED: MAGN400O6 PO (16:23)
[2018-12-05] MEDS ORDERED: MAG355OR18 PO (16:23)
[2018-12-05] MEDS ORDERED: NALO4SPR NS (16:23)
[2018-12-05] MEDS ORDERED: ASCO250T6 PO (16:29)
[2018-12-05] MEDS ORDERED: CHOL20004 PO (16:29)
[2018-12-05] MEDS ORDERED: VANC1PLA9 IV (16:29)
[2018-12-05 17:40] LABS: BASOPHILS % (AUTO) 0.6 % (0.0-2.0); EOSINOPHILS % (AUTO) 0.8 % (0.0-6.0); HEMATOCRIT 30 % (39-51); HEMOGLOBIN 9.9 g/dL (13.5-17.5); LYMPHOCYTES # (AUTO) 0.4 /CMM (0.8-4.8); LYMPHOCYTES % (AUTO) 12.4 % (20.0-44.0); MEAN CORPUSCULAR HGB CONC 33 g/dl (31.0-36.0); MEAN CORPUSCULAR VOLUME 95 fL (80-96); MONOCYTES # (AUTO) 0.3 /CMM (0.1-1.30); NEUTROPHILS # (AUTO) 2.6 /CMM (1.8-8.9); NEUTROPHILS % (AUTO) 76.2 % (43.0-81.0); PLATELET COUNT (AUTO) 90 /CMM (150-450); RED BLOOD CELL COUNT(AUTO) 3.15 MIL/uL (4.5-6.0); WHITE BLOOD COUNT (AUTO) 3.4 K/uL (4.3-11.0)
[2018-12-05 17:52] LABS: CALCIUM, SERUM 9.6 mg/dL (8.5-10.1); CREATININE 6.6 mg/dL (0.6-1.3); POTASSIUM 4.6 mmol/L (3.5-5.1)
[2018-12-05] MEDS ORDERED: MORPHINE SULFATE INJ 4 MG/ML DISP.SYRIN ONE (17:52)
[2018-12-05] MEDS ORDERED: ONDANSETRON HCL/PF 4 MG/2 ML VIAL ONE (17:53)
[2018-12-05 17:58] LABS: BILIRUBIN,TOTAL 0.5 mg/dL (0.2-1.0)
[2018-12-05] MEDS ORDERED: ONDANSETRON HCL/PF - ER 4 MG/2 ML VIAL IV ONE (18:00)
[2018-12-05] MEDS ORDERED: MORPHINE SULFATE INJ 2 MG/ML DISP.SYRIN IV ONE (18:00)
[2018-12-05 21:00] VITALS: BP 112/73
[2018-12-05] MEDS ORDERED: MAGNESIUM HYDROXIDE 30 ML UDC PO PRN (23:30)
[2018-12-05] MEDS ORDERED: HYDROCODONE/APAP 5/325MG 1 EACH TABLET PO PRN (23:30)
[2018-12-05] MEDS ORDERED: MAG HYDROX/AL HYDROX/SIMETH 30 ML UDC PO PRN (23:30)
[2018-12-05] MEDS ORDERED: ACETAMINOPHEN 325 MG TABLET PO PRN (23:30)
[2018-12-05] MEDS ORDERED: ZOLPIDEM TARTRATE 5 MG TABLET PO PRN (23:30)
[2018-12-05] MEDS: MORPHINE SULFATE INJ 2 MG/ML DISP.SYRIN IV PRN (23:57)
[2018-12-05] MEDS: ONDANSETRON HCL/PF 4 MG/2 ML VIAL IVP PRN (23:58)
[2018-12-06] VITALS (7 sets, daily range): BP systolic 87–148; BP diastolic 38–54
[2018-12-06] MEDS ORDERED: IV D5/0.45 NACL 500 ML IV SCH
[2018-12-06] MEDS: IV D5/0.45 NACL 1,000 ML IV PRN (00:16)
[2018-12-06] MEDS: MORPHINE SULFATE INJ 2 MG/ML DISP.SYRIN IV PRN ×2 (03:58→08:02)
[2018-12-06 07:19] LABS: BASOPHILS % (AUTO) 0.6 % (0.0-2.0); EOSINOPHILS % (AUTO) 0.7 % (0.0-6.0); HEMATOCRIT 30 % (39-51); LYMPHOCYTES # (AUTO) 0.4 /CMM (0.8-4.8); LYMPHOCYTES % (AUTO) 13.5 % (20.0-44.0); MEAN CORPUSCULAR HGB CONC 33 g/dl (31.0-36.0); MEAN CORPUSCULAR VOLUME 96 fL (80-96); MONOCYTES # (AUTO) 0.3 /CMM (0.1-1.30); MONOCYTES % (AUTO) 10.8 % (2.0-12.0); NEUTROPHILS # (AUTO) 2.3 /CMM (1.8-8.9); NEUTROPHILS % (AUTO) 74.4 % (43.0-81.0); PLATELET COUNT (AUTO) 80 /CMM (150-450); RED BLOOD CELL COUNT(AUTO) 3.15 MIL/uL (4.5-6.0); WHITE BLOOD COUNT (AUTO) 3.1 K/uL (4.3-11.0)
[2018-12-06] MEDS: PANTOPRAZOLE 40 MG TABLET.DR PO SCH (07:30)
[2018-12-06 08:22] LABS: THYROID STIMULATING HORMONE 4.941 uIU/mL (0.358-3.74)
[2018-12-06 08:32] LABS: LYMPHOCYTES % (MANUAL) 16 % (16-48); NEUTROPHILS % (MANUAL) 72 (42-76)
[2018-12-06 08:33] LABS: MONOCYTES % (MANUAL) 12 % (0-11.0)
[2018-12-06 09:10] LABS: CALCIUM, SERUM 9.1 mg/dL (8.5-10.1); CREATININE 7.3 mg/dL (0.6-1.3); MAGNESIUM 2.1 mg/dL (1.8-2.4); PHOSPHORUS 6.8 mg/dL (2.5-4.9); POTASSIUM 5.2 mmol/L (3.5-5.1)
[2018-12-06] MEDS: CADEXOMER IODINE 40 GM TUBE TP SCH (10:15)
[2018-12-06] MEDS: LORAZEPAM INJ 2 MG/ML VIAL IVP PRN ×2 (11:08→18:20)
[2018-12-06] MEDS: MORPHINE SULFATE INJ 4 MG/ML DISP.SYRIN IV PRN ×3 (13:00→22:01)
[2018-12-06] MEDS: Z GUARD REMEDY 2 OZ OINT TP SCH (23:21)
[2018-12-07] MEDS: IV D5/0.45 NACL 1,000 ML IV PRN (02:07)
[2018-12-07 04:00] VITALS: BP 140/48
[2018-12-07 08:00] VITALS: BP 96/49
[2018-12-07 08:35] VITALS: BP 105/58
[2018-12-07] MEDS: MORPHINE SULFATE INJ 4 MG/ML DISP.SYRIN IV PRN ×3 (08:36→20:01)
[2018-12-07] MEDS: PANTOPRAZOLE 40 MG TABLET.DR PO SCH (08:36)
[2018-12-07] MEDS: Z GUARD REMEDY 2 OZ OINT TP SCH ×2 (09:54→20:49)
[2018-12-07] MEDS: CADEXOMER IODINE 40 GM TUBE TP SCH (09:56)
[2018-12-07] MEDS: ONDANSETRON HCL/PF 4 MG/2 ML VIAL IVP PRN (13:02)
[2018-12-07] MEDS: LORAZEPAM INJ 2 MG/ML VIAL IVP PRN ×2 (14:38→22:15)
[2018-12-07 15:48] LABS: BASOPHILS % (AUTO) 0.5 % (0.0-2.0); EOSINOPHILS % (AUTO) 2.1 % (0.0-6.0); HEMATOCRIT 29 % (39-51); HEMOGLOBIN 9.5 g/dL (13.5-17.5); LYMPHOCYTES # (AUTO) 0.5 /CMM (0.8-4.8); LYMPHOCYTES % (AUTO) 15.4 % (20.0-44.0); MEAN CORPUSCULAR HGB CONC 32 g/dl (31.0-36.0); MEAN CORPUSCULAR VOLUME 96 fL (80-96); MONOCYTES # (AUTO) 0.3 /CMM (0.1-1.30); MONOCYTES % (AUTO) 10.1 % (2.0-12.0); NEUTROPHILS # (AUTO) 2.2 /CMM (1.8-8.9); NEUTROPHILS % (AUTO) 71.9 % (43.0-81.0); PLATELET COUNT (AUTO) 101 /CMM (150-450); RED BLOOD CELL COUNT(AUTO) 3.05 MIL/uL (4.5-6.0); WHITE BLOOD COUNT (AUTO) 3.1 K/uL (4.3-11.0)
[2018-12-07 16:00] VITALS: BP 108/55
[2018-12-07 16:40] LABS: ALBUMIN 2.8 g/dL (3.4-5.0); BILIRUBIN,TOTAL 0.5 mg/dL (0.2-1.0); CALCIUM, SERUM 9.4 mg/dL (8.5-10.1); CREATININE 6.8 mg/dL (0.6-1.3); MAGNESIUM 2.1 mg/dL (1.8-2.4); PHOSPHORUS 7.1 mg/dL (2.5-4.9); POTASSIUM 5.1 mmol/L (3.5-5.1); TOTAL PROTEIN, SERUM 6.9 g/dL (6.4-8.2)
[2018-12-07] MEDS: Z GUARD REMEDY 2 OZ OINT TP PRN ×2 (20:48→20:49)
[2018-12-08] MEDS: MORPHINE SULFATE INJ 4 MG/ML DISP.SYRIN IV PRN ×3 (02:48→20:00)
[2018-12-08] MEDS: LORAZEPAM INJ 2 MG/ML VIAL IVP PRN (05:42)
[2018-12-08] MEDS: IV D5/0.45 NACL 1,000 ML IV PRN (06:17)
[2018-12-08 08:00] VITALS: BP_SYST 80; BP_SYST 88; BP_DIAS 40; BP_DIAS 62
[2018-12-08] MEDS: CADEXOMER IODINE 40 GM TUBE TP SCH (08:26)
[2018-12-08] MEDS: PANTOPRAZOLE 40 MG TABLET.DR PO SCH (08:26)
[2018-12-08] MEDS: Z GUARD REMEDY 2 OZ OINT TP SCH (08:28)
[2018-12-08 11:56] LABS: IRON, SERUM 15 ug/dl (50-175); TOTAL IRON BINDING CAPACITY 130 ug/dl (250-450)
[2018-12-08] MEDS ORDERED: SOD FERRIC GLUC 125 MG in IV NS 0.9% 100 ML IV SCH (14:00)
[2018-12-08 16:00] VITALS: BP 91/55
[2018-12-08] MEDS ORDERED: WARFARIN SODIUM 5 MG TABLET PO ONE (16:30)
== END 2018-12-08 20:25 | DRG 533 ==
LOC: ER 15:49 → TELE1 20:13 → MEDSG1 12-06 12:59
PROVIDERS: ADMIT Student in an Organized Health Care Education/Training Program; ATTEND Nurse Practitioner Acute Care
PROC: 5A1D70Z Performance of Urinary Filtration, Intermittent, Less than 6 Hours Per Day (ICD-10-PCS; principal; 2018-12-06)
PROC: 5A1D70Z Performance of Urinary Filtration, Intermittent, Less than 6 Hours Per Day (ICD-10-PCS; 2018-12-08)
DX: S72.335A Nondisplaced oblique fracture of shaft of left femur, initial encounter for closed fracture (principal); N18.6 End stage renal disease; E11.52 Type 2 diabetes mellitus with diabetic peripheral angiopathy with gangrene; I13.11 Hypertensive heart and chronic kidney disease without heart failure, with stage 5 chronic kidney disease, or end stage renal disease; M86.9 Osteomyelitis, unspecified; E44.0 Moderate protein-calorie malnutrition; E87.1 Hypo-osmolality and hyponatremia; D68.59 Other primary thrombophilia; N25.81 Secondary hyperparathyroidism of renal origin; W05.0XXA Fall from non-moving wheelchair, initial encounter; Y92.129 Unspecified place in nursing home as the place of occurrence of the external cause; E11.22 Type 2 diabetes mellitus with diabetic chronic kidney disease; E11.621 Type 2 diabetes mellitus with foot ulcer; E11.69 Type 2 diabetes mellitus with other specified complication; K21.9 Gastro-esophageal reflux disease without esophagitis; L97.529 Non-pressure chronic ulcer of other part of left foot with unspecified severity; Z99.3 Dependence on wheelchair; Z99.2 Dependence on renal dialysis; Z95.2 Presence of prosthetic heart valve; Z95.1 Presence of aortocoronary bypass graft; Z89.431 Acquired absence of right foot; Z79.890 Hormone replacement therapy; Z79.01 Long term (current) use of anticoagulants; I48.91 Unspecified atrial fibrillation; I25.2 Old myocardial infarction; I25.10 Atherosclerotic heart disease of native coronary artery without angina pectoris; E78.5 Hyperlipidemia, unspecified; D63.8 Anemia in other chronic diseases classified elsewhere; E20.9 Hypoparathyroidism, unspecified; E03.9 Hypothyroidism, unspecified; Z79.51 Long term (current) use of inhaled steroids; Z79.899 Other long term (current) drug therapy; M25.462 Effusion, left knee; D70.9 Neutropenia, unspecified; D69.6 Thrombocytopenia, unspecified; T45.515A Adverse effect of anticoagulants, initial encounter; L98.9 Disorder of the skin and subcutaneous tissue, unspecified; Z85.72 Personal history of non-Hodgkin lymphomas; K75.9 Inflammatory liver disease, unspecified
CPT/HCPCS: 36415; 71045-TC; 73552; 80048-TC; 80053-TC; 80061-TC; 82728-TC; 83540-TC; 83735-TC; 83970; 84100-TC; 84443-TC; 85025-TC; 85610-TC; 85730-TC; 86706; 87081-TC; 87340; 90935-TC; 93307-TC; A6402; G0378; J2060; J2270; J2405; J2916; J3490; J7030